=== PATIENT | male | born 1930 | race Caucasian/White ===

== ENCOUNTER 2016-09-16 04:17 | Inpatient (IN) | payer MEDICARE ==
[~2016-09-16] VITALS: Ht 175.3 cm; Wt 90.7 kg
[2016-09-16] MEDS ORDERED: UNOBMED (04:18)
--- NOTE | 2016-09-16 04:37 | Emergency Room Report ---
History of Present Illness General Chief Complaint: Upper Respiratory Illness Source: Patient, EMS Present Illness HPI 86 YO M with acute SOB. Started at home at rest. Denies fever/chills, chest pain, cough. Patient is very hard of hearing and so its difficult to ascertain approrpiate HPI. There are no family or friends present. Patient has not been here before. He denies smoking, history of asthma or COPD. He denies history of CHF but takes Lasix M/W/F and was "recently at [facility] where they told me I had fluid in my lungs." He has Aortic Stenosis. He has difficulty urinating, "urge incontinence" d/t prostate cancer. Allergies: Coded Allergies: No Known Allergies (Unverified , 09/16/16) Patient History Past Medical History: old chart reviewed Past Surgical History: none Pertinent Family History: none Social History: Denies: alcohol use, drug use, smoking Immunizations: UTD Reviewed Nursing Documentation: PMH: Agreed, PSxH: Agreed Nursing Documentation-PMH Past Medical History: No History, Except For Hx Cardiac Problems: Yes - CHF Hx Hypertension: Yes Review of Systems All Other Systems: negative except mentioned in HPI Physical Exam Vital Signs Date Time Temp Pulse Resp B/P Pulse Ox O2 Delivery O2 Flow Rate FiO2 09/16/16 04:07 98.2 100 20 157/85 100 Room Air Sp02 EP Interpretation: reviewed, normal General Appearance: normal inspection, well appearing, alert, GCS 15, non-toxic , mild distress Head: normocephalic, atraumatic Eyes: bilateral eye EOMI, bilateral eye PERRL ENT: normal ENT inspection, hearing grossly normal, normal voice Neck: normal inspection, full range of motion, supple, no bony tend Respiratory: normal inspection, lungs clear, normal breath sounds, no respiratory distress, no retraction, no accessory muscle use, no wheezing Cardiovascular #1: regular rate, rhythm, no edema Gastrointestinal: normal inspection, normal bowel sounds, non tender, soft, no guarding, no hernia Genitourinary: no CVA tenderness Musculoskeletal: normal inspection, back normal, normal range of motion, Dayan' s Sign negative Neurologic: normal inspection, alert, oriented x3, responsive, 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 I attest that this information is true, accurate and complete to the best of my knowledge. I understand that any falsification, omission, or concealment of material fact may subject me to administrative, civil, or criminal liability. This patient warrants hospital admission for extreme of age and has a condition that cannot be treated as outpatient. Diagnostic Impression: Primary Impression: SOB (shortness of breath) Additional Impressions: Acute on chronic diastolic CHF (congestive heart failure) AURELIO (acute kidney injury) ER Course HCW arrives later, states patient has history of CHF, is a "junkfood nut" who doesnt follow advice of docs to avoid salty food. History of Atrial Fib as well Labs: H&H stable. No leuks. Elevated BNP. Trop normal. AURELIO CHF: Acute pulm edema. Cardiomegaly. No obvious lobar PNA A: Acute on chronic CHF, AURELIO Improved with bipap, IV lasix, Nitro Approved by Dr Anderson of [place] for [facility] admission [facility] 530[facility] to manage admission at [facility] EKG Diagnostic Results Rate: tachycardiac, other Rhythm: other - atrial fib ST Segments: no acute changes ASA given to the pt in ED: No Rhythm Strip Diag. Results EP Interpretation: yes Rate: 120 Rhythm: no PVC's, no ectopy Chest X-Ray Diagnostic Results EP Interpretation: Yes Findings: no pneumothorax, other - Cardiomegaly, bilateral pulm congestion Number of Views: 1 Last Vital Signs Date Time Temp Pulse Resp B/P Pulse Ox O2 Delivery O2 Flow Rate FiO2 09/16/16 04:07 98.2 100 20 157/85 100 Room Air Status: improved Disposition: ADMITTED INPATIENT Condition: Serious LAURO DUFFY M.D. Sep 16, 2016 04:37
[2016-09-16] MEDS ORDERED: Nitroglycerin Subl 0.4mg tab (Bottle Of 25) SL PRN (04:45)
[2016-09-16 04:51] LABS: BASOPHILS % (AUTO) 1.6 % (0.0-2.0); EOSINOPHILS % (AUTO) 0.4 % (0.0-3.0); LYMPHOCYTES % (AUTO) 7.7 % (20.0-45.0); MEAN CORPUSCULAR HEMOGLOBIN 29.4 PG (27.0-31.0); MEAN CORPUSCULAR HGB CONC 31.8 G/DL (32.0-36.0); MEAN CORPUSCULAR VOLUME 92 FL (80-99); MEAN PLATELET VOLUME 10.7 FL (6.5-10.1); MONOCYTES % (AUTO) 11.9 % (1.0-10.0); NEUTROPHILS % (AUTO) 78.4 % (45.0-75.0); PLATELET COUNT 143 K/UL (150-450); RED BLOOD COUNT 4.36 M/UL (4.70-6.10); RED CELL DISTRIBUTION WIDTH 15.3 % (11.6-14.8)
[2016-09-16 05:06] LABS: ALANINE AMINOTRANSFERASE 13 U/L (3-41); ALBUMIN/GLOBULIN RATIO 1.2 (1.0-2.7); ANION GAP 19 (5-15); ASPARTATE AMINO TRANSFERASE 29 U/L (5-40); CALCIUM 8.9 mg/dL (8.6-10.2); CARBON DIOXIDE 23 mEQ/L (20-30); CHLORIDE 98 mEQ/L (98-107); CREATININE 1.4 mg/dL (0.7-1.2); HEMOLYSIS 117; POTASSIUM 4.4 mEQ/L (3.4-4.9); SODIUM 140 mEQ/L (135-145); TOTAL PROTEIN 6.5 g/dL (6.6-8.7)
[2016-09-16 05:08] LABS: TROPONIN I < 0.30 ng/mL (<=0.30)
[2016-09-16 05:10] VITALS: BP 148/86
[2016-09-16 05:18] LABS: CKMB 2.6 ng/mL (< 6.7)
[2016-09-16 05:53] LABS: ABG ALLEN TEST POSITIVE; ABG BASE EXCESS 1.4; ABG PCO2 39.3 mmHg (35.0-45.0)
[2016-09-16 07:40] VITALS: BP 114/84
[2016-09-16 08:14] VITALS: BP 127/78
[2016-09-16 08:38] LABS: APPEARANCE,URINE CLEAR; KETONES,URINE NEGATIVE (NEGATIVE); LEUKOCYTE ESTERASE ,URINE NEGATIVE (NEGATIVE); NITRITE,URINE NEGATIVE (NEGATIVE); PH,URINE 5 (4.5-8.0); PROTEIN,URINE NEGATIVE (NEGATIVE); UROBILINOGEN,URINE NORMAL MG/DL (0.0-1.0)
[2016-09-16 08:58] LABS: BACTERIA,URINE OCCASIONAL /HPF; WBC,URINE 0-2 /HPF (0 - 0)
[2016-09-16] MEDS ORDERED: Aspirin Baby 81mg NG SCH (09:45)
[2016-09-16 12:00] VITALS: BP 123/91
[2016-09-16 12:11] LABS: TROPONIN I < 0.30 ng/mL (<=0.30)
--- NOTE | 2016-09-16 12:28 | Diagnostic Imaging Report ---
Indication: SOB Technique: One view of the chest Comparison: none Findings: The heart is enlarged. There is mild diffuse interstitial disease, acuity indeterminate. There may be small bilateral pleural effusions. Impression: Cardiomegaly Interstitial disease of indeterminate acuity, could represent mild pulmonary edema.: Clinical findings Possible small bilateral pleural effusions
[2016-09-16] MEDS: Nitroglycerin 2% oint pkt TOPIC SCH ×2 (13:33→21:01)
[2016-09-16 16:00] VITALS: BP 119/83
[2016-09-16] MEDS ORDERED: KCl 10% 20 mEq/15ml liquid NG ONE (16:00)
[2016-09-16] MEDS ORDERED: Atenolol 25mg tab ORAL SCH ×2 (18:00→21:00)
[2016-09-16 20:00] VITALS: BP 143/86
[2016-09-16] MEDS ORDERED: Heparin 5000 units/ml inj SUBQ SCH (21:00)
--- NOTE | 2016-09-16 21:49 | Consultation ---
DATE OF CONSULTATION: 09/16/2016 CARDIOLOGY CONSULTATION REQUESTING PHYSICIAN: Brenden Bryant M.D. REASON OF CONSULTATION: Congestive heart failure. HISTORY OF PRESENT ILLNESS: The patient is an 86-year-old white male has a long-standing history of congestive heart failure and possibly valvular heart disease, although he is not certain. The history is obtained from his daughter who also has limited data on his prior cardiac history. The patient is extremely hard of hearing as well. The patient apparently lives at home with a caregiver. He is compliant with medications, but not with dietary sodium restriction. He was hospitalized at [facility] about 3 weeks ago with a similar presentation. He sees a automatic embroidery machine tender there. His daughter is not clear about the exact etiology for his recurrent heart failure, but is aware of some valve problem. The patient had been on warfarin in the past, but stopped it due to concerns about falling and bleeding. His daughter states, he had difficulty going for blood draws too. PAST MEDICAL HISTORY: Hypertension, atrial fibrillation, aortic stenosis, prostate cancer, prostatic hypertrophy, and urinary incontinence. ALLERGIES: None. MEDICATIONS: Prior to admission, reviewed and reconciled. SOCIAL HISTORY: Negative for smoking, alcohol, or substance abuse. FAMILY HISTORY: Noncontributory. REVIEW OF SYSTEMS: As outlined above. All systems are otherwise negative. PHYSICAL EXAMINATION: GENERAL: Afebrile. VITAL SIGNS: Blood pressure 157/85, pulse 100, and respirations 20. HEENT: Conjunctivae are pink. Oropharynx is clear. NECK: Supple. Jugular venous pressure greater than 10. LUNGS: With bilateral rales. Diminished breath sounds at the bases. CARDIAC: Point of maximum impulse sustained laterally displaced. Normal S1 and S2. A 1/6 systolic murmur at the base. ABDOMEN: Soft. EXTREMITIES: No edema. LABORATORY AND DIAGNOSTIC STUDIES: EKG atrial fibrillation, nonspecific ST-T wave changes with rapid ventricular response. White count 7 and hemoglobin 12.8. Potassium 4.4, BUN 21, and creatinine 1.4. Troponin is negative. Pro-natriuretic peptide is 8700. Chest x-ray, small pleural effusion and pulmonary venous congestion mild to moderate. IMPRESSION: 1. Acute on chronic diastolic CHF 2. AV stenosis 3. Atrial fibrillation, chronic - with increased ventricular response 4. Acute respiratory insufficiency 5. Pleural effusions PLAN: 1. Diuresis 2. Max antifailure regimen 3. Advance beta eduardo. 4. I have recommended anti-coagulation; patient wishes to defer, but will discuss this again with his primary automatic embroidery machine tender who has also recommended it. Rivaroxiban would be such an option. Eldon Richard M.D. DR: ALICE JOB#: [id number] CC: SRIRAM
[2016-09-17] VITALS: BP 136/88
[2016-09-17 04:00] VITALS: BP 120/91
[2016-09-17 05:14] LABS: ANION GAP 15 (5-15); CALCIUM 8.7 mg/dL (8.6-10.2); CARBON DIOXIDE 29 mEQ/L (20-30); CHLORIDE 101 mEQ/L (98-107); CHOLESTEROL 118 mg/dL (< 200); CHOLESTEROL/HDL RATIO 2.1 (3.3-4.4); CREATININE 1.4 mg/dL (0.7-1.2); HEMOLYSIS 4; LDL CHOLESTEROL (CALC.) 49 mg/dL (60-99); POTASSIUM 3.6 mEQ/L (3.4-4.9); SODIUM 145 mEQ/L (135-145)
[2016-09-17 05:19] LABS: TROPONIN I < 0.30 ng/mL (<=0.30)
[2016-09-17] MEDS: Nitroglycerin 2% oint pkt TOPIC SCH (05:37)
--- NOTE | 2016-09-17 06:18 | Progress Note ---
DATE: 09/17/2016 CARDIOLOGY PROGRESS NOTE SUBJECTIVE: The patient is somewhat less shortness of breath today. He still has congestion. OBJECTIVE: VITAL SIGNS: Blood pressure 120/91, pulse 112, respirations 20, afebrile, and oxygen saturation on room air 94%, on nasal cannula 2 liters is 96%. NECK: Jugular venous pressure elevated. LUNGS: With basilar rales and diminished breath sounds bilaterally. CARDIAC: Irregularly irregular. Normal S1 and S2. ABDOMEN: Soft. EXTREMITIES: Trace edema. LABORATORY AND DIAGNOSTIC DATA: Echocardiogram is reviewed and notable for ejection fraction preserved. Aortic valve area 0.8. Labs, BUN 20, creatinine 1.4, potassium 3.6, and LDL 49. Troponin negative. IMPRESSION: 1. Acute on chronic diastolic congestive heart failure. 2. [id number] aortic valve stenosis due to degenerative valve disease. Favorable lipid panel. 3. Chronic kidney disease. 4. Atrial fibrillation with increased ventricular response. PLAN: 1. Continue diuresis. 2. Monitor volume status. 3. Cardiorenal parameters. 4. Avoid tight blood pressure control in this clinical setting with aortic valve stenosis. 5. Beta-eduardo dose to be advanced for better rate control. 6. The patient refuses anticoagulation at this time and wants to discuss it with his primary care physician still in the past as recommended resumption of warfarin as well. The option of was discussed as well. Eldon Richard M.D. DR: Jason JOB#: [id number] CC:
[2016-09-17 08:00] VITALS: BP 135/79
[2016-09-17] MEDS ORDERED: Atenolol 25mg tab ORAL SCH (09:00)
[2016-09-17] MEDS ORDERED: KCl 10% 20 mEq/15ml liquid ORAL SCH ×2 (09:00)
[2016-09-17] MEDS ORDERED: Heparin 5000 units/ml inj SUBQ SCH (09:00)
[2016-09-17] MEDS ORDERED: Aspirin Baby 81mg NG SCH (09:00)
[2016-09-17] MEDS ORDERED: KCl 10% 20 mEq/15ml liquid NG SCH (09:00)
--- NOTE | 2016-09-17 10:44 | Discharge Summary ---
Discharge Summary Hospital Course Date of Admission Sep 16, 2016 at 05:05 Date of Discharge 25 Admitting Diagnosis 1. Acute on chronic diastolic CHF 2. AV stenosis 3. Atrial fibrillation, chronic - with increased ventricular response 4. Acute respiratory insufficiency 5. Pleural effusions HPI Eldon Murphy is a 86 year old male who was admitted on Sep 16, 2016 at 05:05 for Respiratory Distress and required BIPAP. Patient noted to have Atrial fibrillation, , and pulmonary hypertension. Patient was diuresed and improved and now off BIPAP. patient to transfer to [place] for ongoing optimization. Patient still with need for oxygen and has noted controlled afib on the monitor. Consultations cardiology Discharge Condition Upon Discharge: improving Discharge Disposition Patient was discharged to [place] Discharge Diagnoses: (1) Respiratory failure JOSE M BROWER Sep 17, 2016 10:44
[2016-09-17] MEDS ORDERED: TENORMIN25 MG ORAL (10:52)
[2016-09-17] MEDS ORDERED: ASPIR 8181 MG ORAL (10:52)
[2016-09-17] MEDS ORDERED: HEPARIN SO5000 UNIT2 SUBQ (10:53)
[2016-09-17] MEDS ORDERED: FUROSEMIDE40 MG/4 ML IV (10:53)
[2016-09-17] MEDS ORDERED: NITROSTAT0.4 M1 SL (10:54)
[2016-09-17] MEDS ORDERED: POTASSIUM20 MEQ/15 GT (10:56)
[2016-09-17 11:26] VITALS: BP 133/85
--- NOTE | 2016-09-17 11:33 | Diagnostic Imaging Report ---
Indication: Dyspnea Comparison: 09/16/16 A single view chest radiograph was obtained. Findings: There is enlargement of the cardiac silhouette with pulmonary vascular redistribution and prominence, hazy vessel margins and the suggestion of interstitial edema consistent with CHF. Small pleural effusions are likely present. The findings have not changed significantly. Impression: Mild CHF
[2016-09-17 16:00] VITALS: BP 153/100
[2016-09-18] MEDS ORDERED: Nitroglycerin Subl 0.4mg tab (Bottle Of 25) SL PRN (04:45)
--- NOTE | 2016-09-19 10:08 | History and Physical Report ---
DATE OF ADMISSION: 09/16/2016 REASON FOR ADMISSION: Respiratory failure and shortness of breath. HISTORY OF PRESENT ILLNESS: The patient is an 86-year-old male who presents with acute shortness of breath. The patient is from a group home with COPD and CHF. The patient does have a history of congestive heart failure and does take Lasix. The patient apparently was in the hospital and was recently told he had fluid in his lungs. He also has a history of aortic stenosis. The patient presented for evaluation and treatment. The patient's care discussed and reviewed. The patient is on BiPAP presently PAST MEDICAL HISTORY: Notable for the above. MEDICATIONS: Reviewed. ALLERGIES: Reviewed. SOCIAL HISTORY: Noted and reviewed. The patient is retried at present. PHYSICAL EXAMINATION: GENERAL: A well-developed male, comfortable, presently on BiPAP. VITAL SIGNS: In the emergency room, blood pressure 157/85, pulse 100, respirations 20, temperature 98.2, and saturation adequate. HEENT: Fairly negative. NECK: Supple. LUNGS: Moderate air entry. Crackles in both bases. CARDIAC: S1 and S2. Positive murmur. ABDOMEN: Soft and nontender. EXTREMITIES: Some edema. NEUROLOGIC: Grossly nonfocal. LABORATORY DATA: Reviewed. Hemoglobin 12.8, platelets 143,000. Chemistry, creatinine 1.4. BNP 871. Arterial blood gasses, pH 7.3, pCO2 39, pO2 84. IMPRESSION: 1. Congestive heart failure acute exacerbation. 2. Respiratory failure. 3. Evidence of fluid overload. 4. Mild renal impairment. RECOMMENDATIONS: Resume home medications. Diurese. BiPAP as needed, ABG as needed. Follow clinically. Nitrates, aspirin, echocardiogram, low-dose beta-eduardo possible and monitor clinically. Obtain cardiology evaluation. Optimize and transfer to [place] once stable. Brenden Bryant M.D. DR: [place] JOB#: [id number] CC: SRIRAM
--- NOTE | 2016-09-20 09:57 | Cardiology Report ---
APPROVED REPORT EXAM: Two-dimensional and M-mode echocardiogram with Doppler and color Doppler. INDICATION Congestive Heart Failure M-Mode DIMENSIONS IVSd1.5 (0.7-1.1cm)Left Atrium (MM)4.2 (1.6-4.0cm) LVDd4.6 (3.5-5.6cm)Aortic Root3.0 (2.0-3.7cm) PWd1.2 (0.7-1.1cm)Aortic Cusp Exc.1.0 (1.5-2.0cm) LVDs2.6 (2.5-4.0cm) PWs2.0 cm Normal left ventricular chamber size systolic function and wall motion. Left ventricular ejection fraction estimated to be 50-55 %. Mild left ventricular hypertrophy. No evidence of pericardial fat or effusion. Moderate bi-atrial enlargement. Right ventricular chamber size is within normal limits. Aortic valve calcification with decreased cusp excursion c/w aortic stenosis. Mildly thickened mitral valve leaflets with normal excursion. Mild mitral annulus and aortic root calcification. Pulmonic valve not well visualized. Normal tricuspid valve structure. IVC dilated at 2.9 cm with minimal physiologic collapse. A color flow and spectral Doppler study was performed and revealed: Moderate aortic regurgitation. Peak aortic valve gradient of 84 mmHg and a mean of 46 mmHg. Aortic valve area 0.8 cm2 calculated by continuity equation. Trace mitral regurgitation. Left ventricular diastolic function could not determined due to a-fib. Severe tricuspid regurgitation. Tricuspid systolic velocities suggests peak right ventricular systolic pressure of 60 mmHg, consistent with severe pulmonary hypertension. No pulmonic regurgitation present.
--- NOTE | 2016-09-22 08:29 | Cardiology Report ---
APPROVED REPORT EKG Measurement Heart [id number] Atrial fibrillation [address] elevation, consider inferior injury or acute infarct Prolonged QT Consider right ventricular involvement in acute inferior infarct Abnormal ECG
== END 2016-09-17 16:55 | disposition short-term general hospital (02) | DRG 291 ==
LOC: EDBD 04:17 → EMR 04:29 → 2W 05:05 → EMR 07:44 → 2E 09-17 07:29
PROC: 5A09357 Assistance with Respiratory Ventilation, Less than 24 Consecutive Hours, Continuous Positive Airway Pressure (ICD-10-PCS; principal; 2016-09-16)
DX: I13.0 Hypertensive heart and chronic kidney disease with heart failure and stage 1 through stage 4 chronic kidney disease, or unspecified chronic kidney disease (principal); I50.33 Acute on chronic diastolic (congestive) heart failure; J96.00 Acute respiratory failure, unspecified whether with hypoxia or hypercapnia; I35.0 Nonrheumatic aortic (valve) stenosis; I48.2 Chronic atrial fibrillation; N18.9 Chronic kidney disease, unspecified; I27.2 Other secondary pulmonary hypertension
CPT/HCPCS: 36415; 36600; 71010; 80048; 80053; 80061; 81001; 82550; 82553; 82803; 83880; 84484; 85025; 93005; 93306; 94660; 94664